=== PATIENT | female | born 1995 | race Caucasian/White ===

== ENCOUNTER → 2017-12-28 20:09 | Outpatient (CLI) | payer OTHER, SELFPAY | PROVIDERS: Family Provider Internal Medicine; PCP Internal Medicine; Visit Provider Internal Medicine Pulmonary Disease | DX: G47.10 Hypersomnia, unspecified (principal) | CPT/HCPCS: 95810 ==

== ENCOUNTER → 2018-01-05 10:44 | Outpatient (CLI) | payer OTHER, SELFPAY ==
[2018-01-06 20:06] LABS: HCV Quant. RNA PCR HCV Not Detected IU/mL (.)
[2018-01-07 08:10] LABS: HEPATITIS B SURFACE AG Negative (Negative); HSV 1 IgG 1.46 index (0.00-0.90); HSV 2 IgG < 0.91 index (0.00-0.90)
[2018-01-12 03:14] LABS: Rapid Plasmin Reagin (RPR) NONREACTIVE (NONREACTIVE)
== END ==
PROVIDERS: Family Provider Internal Medicine; PCP Internal Medicine; Visit Provider Obstetrics & Gynecology
DX: Z11.3 Encounter for screening for infections with a predominantly sexual mode of transmission (principal)
CPT/HCPCS: 36415; 86592; 86695; 86696; 87340; 87522

== ENCOUNTER → 2018-01-05 16:34 | Outpatient (CLI) | payer OTHER, SELFPAY ==
[2018-01-05 19:05] LABS: Chlamydia Trachomatis by PCR Negative (Negative); Neisserai gonorrhoeae by PCR Negative (Negative); Probe Check PASS; Sample Adequacy Control PASS; Specimen Processing Control PASS
== END ==
PROVIDERS: Visit Provider Obstetrics & Gynecology
DX: Z11.3 Encounter for screening for infections with a predominantly sexual mode of transmission (principal)
CPT/HCPCS: 87491; 87591

== ENCOUNTER → 2018-02-15 20:00 | Outpatient (CLI) | payer OTHER, SELFPAY | PROVIDERS: Family Provider Internal Medicine; PCP Internal Medicine; Visit Provider Internal Medicine Pulmonary Disease | DX: G47.33 Obstructive sleep apnea (adult) (pediatric) (principal) | CPT/HCPCS: 95811 ==

== ENCOUNTER → 2018-05-04 11:00 | Outpatient (CLI) | payer OTHER, SELFPAY | PROVIDERS: Family Provider Internal Medicine; PCP Internal Medicine; Visit Provider Internal Medicine Pulmonary Disease | DX: Z53.9 Procedure and treatment not carried out, unspecified reason (principal) ==

== ENCOUNTER 2018-08-03 10:45 | Outpatient (RCR) | payer OTHER, SELFPAY ==
--- NOTE | 2017-10-30 14:59 | MASS.EVAL ---
Massage Therapy Evaluation: INITIAL EVALUATION: PT. NAME: JULIANNE CLAUDIO : [birth year] V#: [id number] Referring Phys: Dr. 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 Bolden with a diagnosis of muscle spasm in cervical and interscapular. She presents today with symptoms of tightness in the neck and shoulders. 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 Overall she rates her health to be in good condition. Julianne is currently taking control, aldactone, trintellix as medications. OBJECTIVE: The first treatment consisted of a deep tissue upper body massage. I also massaged the posterior of the leg, due to patient having muscle spasm the night before. I focused on the cervical, interscapular, upper trapezium, forearms, pectoral, tricep, bicep, serratus anterior, and latissimus dorsi. Trigger point therapy was performed. ASSESSMENT: I treated Julianne in 2017 and since the patient has had decrease in muscle tenderness, knots, and pain referral in right arm. Muscle tension was still high but overall the ropiness in muscles have decreased and muscle tenderness and referral pain has decreased. I feel Julianne is a great candidate for massotherapy at this time. PLAN: The plan of care was reviewed with the patient. The patient is to be seen on a regular monthly basis for one hour sessions of massotherapy.
--- NOTE | 2017-10-30 15:15 | MASS.EVAL_ITS ---
Massage Therapy Evaluation: INITIAL EVALUATION: PT. NAME: JULIANNE CLAUDIO : [birth year] V#: [id number] Referring Phys: Dr. 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 Bolden with a diagnosis of muscle spasm in cervical and interscapular. She presents today with symptoms of tightness in the neck and shoulders. 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 Overall she rates her health to be in good condition. Julianne is currently taking control, aldactone, trintellix as medications. OBJECTIVE: The first treatment consisted of a deep tissue upper body massage. I also massaged the posterior of the leg, due to patient having muscle spasm the night before. I focused on the cervical, interscapular, upper trapezium, forearms, pectoral, tricep, bicep, serratus anterior, and latissimus dorsi. Trigger point therapy was performed. ASSESSMENT: I treated Julianne in 2017 and since the patient has had decrease in muscle tenderness, knots, and pain referral in right arm. Muscle tension was still high but overall the ropiness in muscles have decreased and muscle tenderness and referral pain has decreased. I feel Julianne is a great candidate for massotherapy at this time. PLAN: The plan of care was reviewed with the patient. The patient is to be seen on a regular monthly basis for one hour sessions of massotherapy.
== END 2018-08-03 19:00 | disposition home or self-care (01) ==
LOC: MASS 10:45
PROVIDERS: Family Provider Internal Medicine; PCP Internal Medicine; Visit Provider Internal Medicine
DX: M79.601 Pain in right arm (principal)
CPT/HCPCS: 97124

== ENCOUNTER → 2019-02-08 11:44 | Outpatient (CLI) | payer OTHER, SELFPAY ==
[2019-02-08 11:10] VITALS: BMI 26.5
[2019-02-08 13:59] LABS: HIV - WCH Non-Reactive (Nonreactive)
[2019-02-08 21:06] LABS: Chlamydia Trachomatis by PCR Negative (Negative); Neisserai gonorrhoeae by PCR Negative (Negative); Probe Check PASS; Sample Adequacy Control PASS; Specimen Processing Control PASS
[2019-02-09 20:06] LABS: HCV Quant. RNA PCR HCV Not Detected IU/mL (.)
[2019-02-10 17:24] LABS: HSV 1 IgG 1.46 index (0.00-0.90); HSV 2 IgG < 0.91 index (0.00-0.90)
[2019-02-13 09:10] LABS: HPV Reflexed? NOT INDICATED
[2019-02-15 01:35] LABS: Rapid Plasmin Reagin (RPR) NONREACTIVE (NONREACTIVE)
== END ==
PROVIDERS: Family Provider Internal Medicine; PCP Internal Medicine; Referring Provider Nurse Practitioner Women's Health; Visit Provider Nurse Practitioner Women's Health
DX: Z12.4 Encounter for screening for malignant neoplasm of cervix (principal); Z11.3 Encounter for screening for infections with a predominantly sexual mode of transmission
CPT/HCPCS: 36415; 86592; 86695; 86696; 86703; 87491; 87522; 87591; 87624; 88175; G0145

== ENCOUNTER → 2019-05-24 12:07 | Outpatient (CLI) | payer OTHER, SELFPAY ==
[2019-04-13 08:26] VITALS: BMI 26.5
[2019-05-24 14:30] LABS: Anion Gap 6 (5-15); BUN 13 mg/dL (7-18); BUN/Creat Ratio 14.5 RATIO (10-20); Calcium,Total 8.4 mg/dL (8.5-10.1); Chloride 109 mmol/L (98-107); EST Glomerular Filtration Rate 81 mL/min (>60); Est Glom Filt Rate - Afr Amer 98 mL/min (>60); Glucose 93 mg/dL (74-106); Potassium 3.7 mmol/L (3.5-5.1); Sodium Level 141 mmol/L (136-145)
== END ==
PROVIDERS: Family Provider Internal Medicine; PCP Internal Medicine; Referring Provider Internal Medicine; Visit Provider Internal Medicine
DX: Z51.81 Encounter for therapeutic drug level monitoring (principal)
CPT/HCPCS: 36415; 80048

== ENCOUNTER → 2019-06-14 09:40 | Outpatient (CLI) | payer OTHER, SELFPAY ==
[2019-06-14 08:46] VITALS: BMI 27.3
[2019-06-14 11:58] LABS: Chlamydia Trachomatis by PCR Negative (Negative); Neisserai gonorrhoeae by PCR Negative (Negative); Probe Check PASS; Sample Adequacy Control PASS; Specimen Processing Control PASS
== END ==
PROVIDERS: Family Provider Internal Medicine; PCP Internal Medicine; Visit Provider Nurse Practitioner Women's Health
DX: Z11.3 Encounter for screening for infections with a predominantly sexual mode of transmission (principal); N93.0 Postcoital and contact bleeding
CPT/HCPCS: 87070; 87205; 87491; 87591

== ENCOUNTER → 2019-06-28 10:00 | Outpatient (CLI) | payer OTHER, SELFPAY ==
[2019-05-31 10:03] VITALS: BMI 27.3
== END ==
PROVIDERS: Family Provider Internal Medicine; PCP Internal Medicine; Referring Provider Internal Medicine Critical Care Medicine; Visit Provider Internal Medicine Critical Care Medicine
DX: G47.33 Obstructive sleep apnea (adult) (pediatric) (principal)
CPT/HCPCS: 98960; G0463

== ENCOUNTER 2019-08-19 19:45 | Outpatient (RCR) | payer OTHER, SELFPAY ==
--- NOTE | 2018-10-26 10:08 | MASS.EVAL ---
Massage Therapy Evaluation: Initial Evaluation: Date: 10/26/18 Pt. Name: Julianne Patel :[birth year] [id number] Referring Phys: Dr. 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 Bolden with the diagnosis of neck/back pain. She presents today with the symptoms of pain in the right scapula and stiffness in the neck. She reports that the pain level is a 6/10 at worst and 2/10 at rest on the pain scale. The symptoms have been present for a week with a continual frequency. The symptoms commenced due to her occupation. 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 Julianne rates her health to be in great condition with no limitations during daily activities. Objective: Upon palpation, Julianne muscles were very tight with knots that I could palpate right away. The first treatment consisted of a deep tissue upper body massage. I focused on cervical and thoracic paraspinals, scalenes, SCM, upper trapezium, pectorals, rhomboids, levator, infraspinatus, and arms. Trigger point therapy and neck stretches were performed. Assessment: Muscle tension was very high. The most tenderness spots were the right upper trapezium and right rhomboid. The right side of her cervical and thoracic regions was more significantly tighter. Stress level decreased post the massage. I feel Julianne is a great candidate for massotherapy at this time. I have been treating Julianne for a year. She has improved with no numbness in her arms and less ropiness in her muscles. Plan: The plan of care was reviewed with the patient. The patient is to be seen once a month for one hour sessions of massotherapy. We established a home stretching program which consisted of neck and arm stretching.
--- NOTE | 2018-10-26 10:27 | MASS.EVAL_ITS ---
Massage Therapy Evaluation: Initial Evaluation: Date: 10/26/18 Pt. Name: Julianne Patel :[birth year] V#[id number] Referring Phys: Dr. 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 Bolden with the diagnosis of neck/back pain. She presents today with the symptoms of pain in the right scapula and stiffness in the neck. She reports that the pain level is a 6/10 at worst and 2/10 at rest on the pain scale. The symptoms have been present for a week with a continual frequency. The symptoms commenced due to her occupation. 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 Julianne rates her health to be in great condition with no limitations during daily activities. Objective: Upon palpation, Julianne muscles were very tight with knots that I could palpate right away. The first treatment consisted of a deep tissue upper body massage. I focused on cervical and thoracic paraspinals, scalenes, SCM, upper trapezium, pectorals, rhomboids, levator, infraspinatus, and arms. Trigger point therapy and neck stretches were performed. Assessment: Muscle tension was very high. The most tenderness spots were the right upper trapezium and right rhomboid. The right side of her cervical and thoracic regions was more significantly tighter. Stress level decreased post the massage. I feel Julianne is a great candidate for massotherapy at this time. I have been treating Julianne for a year. She has improved with no numbness in her arms and less ropiness in her muscles. Plan: The plan of care was reviewed with the patient. The patient is to be seen once a month for one hour sessions of massotherapy. We established a home stretching program which consisted of neck and arm stretching.
--- NOTE | 2019-08-22 10:15 | MASS.DISCH ---
Massage Therapy Discharge Summary: DATE: 08/22/19 PT NAME: ELENITA CLAUDIO : 1995 REF PHYS: DR. TY V#: [id number] THE PATIENT WAS SEEN FOR MASSOTHERAPY EVALUATION ON 10/26/18 WITH A DIAGNOSIS OF NECK AND UPPER BACK PAIN WITH THE REFERRAL OF PAIN IN THE ARMS. THE PATIENT WAS TREATED WITH 10 SESSIONS OF MASSAGE CONSISTING OF DEEP TISSUE OF THE UPPER BODY. HER GOALS FOR TREATMENT WERE MET SHE REPORTED NOT HAVING PAIN IN THE NECK AND SHOULDERS AND NO REFERRAL PAIN GOING INTO THE ARMS THROUGHOUT HER THERAPY. AT THIS TIME I AM DISCHARGING THE PATIENT FROM OUR CARE AT THE [facility].
== END 2019-08-19 19:46 | disposition home or self-care (01) ==
LOC: MASS 19:45
PROVIDERS: Family Provider Internal Medicine; PCP Internal Medicine; Referring Provider Internal Medicine; Visit Provider Internal Medicine
DX: M54.9 Dorsalgia, unspecified (principal)
CPT/HCPCS: 97124

== ENCOUNTER → 2020-09-11 10:45 | Outpatient (CLI) | payer OTHER, SELFPAY ==
[2020-03-13 08:05] VITALS: BMI 27.3
--- NOTE | 2020-09-11 10:50 | US_ITS ---
STUDY: ULTRASOUND OF THE FEMALE PELVIS - COMPLETE REASON FOR EXAM: Female, 25 years old. irregular menses -- heavy menses LMP: 09/01/2020 TECHNIQUE: Endovaginal and transabdominal TECHNICAL QUALITY: Adequate. COMPARISON: None. FINDINGS: The uterus is anteverted and is in a midline position. The uterus measures 7.4 x 4.2 x 2.7 cm. Normal uterine cervix. The endometrium measures 3.5 mm in thickness, and is slightly heterogeneous. There is no demonstrated endometrial mass. There is no demonstrated myometrial mass. The patient does not have an I.U.D. The right ovary is visualized. The right ovary measures 2.3 x 1.7 x 1.7 cm. There is a questionable bowel loop or mixed lesion in the right adnexa. The solid area measures 3.8 x 3.6 x 3 cm and the cystic area measures 5.2 x 6.2 x 4.5 cm. There is normal arterial and normal venous vascularity. The left ovary is visualized. The left ovary measures 2.1 x 1.1 x 1.5 cm. There is no left ovarian cyst or ovarian mass. There is no visualized left adnexal mass or complex lesion. There is normal arterial and normal venous vascularity. There is no fluid in the cul-de-sac. The pre void volume of the bladder was 444 ml. US/Pelvic (Non ) IMPRESSION: Possible right adnexal lesion versus bowel loop. Follow-up CT or MRI is recommended. Electronically Signed: Surjit Tran DO at 17:14 EST Tel [phone], Service support ,
--- NOTE | 2020-09-11 10:50 | US_ITS ---
STUDY: ULTRASOUND OF THE FEMALE PELVIS - COMPLETE REASON FOR EXAM: Female, 25 years old. irregular menses -- heavy menses LMP: 09/01/2020 TECHNIQUE: Endovaginal and transabdominal TECHNICAL QUALITY: Adequate. COMPARISON: None. FINDINGS: The uterus is anteverted and is in a midline position. The uterus measures 7.4 x 4.2 x 2.7 cm. Normal uterine cervix. The endometrium measures 3.5 mm in thickness, and is slightly heterogeneous. There is no demonstrated endometrial mass. There is no demonstrated myometrial mass. The patient does not have an I.U.D. The right ovary is visualized. The right ovary measures 2.3 x 1.7 x 1.7 cm. There is a questionable bowel loop or mixed lesion in the right adnexa. The solid area measures 3.8 x 3.6 x 3 cm and the cystic area measures 5.2 x 6.2 x 4.5 cm. There is normal arterial and normal venous vascularity. The left ovary is visualized. The left ovary measures 2.1 x 1.1 x 1.5 cm. There is no left ovarian cyst or ovarian mass. There is no visualized left adnexal mass or complex lesion. There is normal arterial and normal venous vascularity. There is no fluid in the cul-de-sac. The pre void volume of the bladder was 444 ml. US/Transvaginal Non- IMPRESSION: Possible right adnexal lesion versus bowel loop. Follow-up CT or MRI is recommended. Electronically Signed: Surjit Tran DO at 17:14 EST Tel [phone], Service support ,
== END ==
PROVIDERS: PCP Internal Medicine; Referring Provider Nurse Practitioner Women's Health; Visit Provider Nurse Practitioner Women's Health
DX: N92.6 Irregular menstruation, unspecified (principal); Q51.3 Bicornate uterus
CPT/HCPCS: 76830; 76856